=== PATIENT | male | born 1955 | race Caucasian/White ===

== ENCOUNTER 2024-11-28 09:18 | Outpatient (CLI) | payer OTHER, SELFPAY ==
--- NOTE | 2024-11-28 09:24 | USR_ITS ---
PROCEDURE INFORMATION: Exam: US Bilateral Noninvasive Physiologic Study of the Lower Extremity Arteries, Limited Exam date and time: 11/28/2024 9:21 AM Age: 69 years old Clinical indication: Pain; Leg, lower; Bilateral; Additional info: Claudication bilateral TECHNIQUE: Imaging protocol: Bilateral Limited bilateral noninvasive physiologic studies of lower extremity arteries. COMPARISON: No relevant prior studies available. FINDINGS: Right Ankle-Brachial Index: 1.08, brachial-digital index 0.71 Left Ankle-Brachial Index: 1.19, brachial-digital index 0.66 US/CV ankle brachial index 16911 IMPRESSION: Unremarkable study
== END 2024-11-28 09:19 | disposition home or self-care (01) ==
LOC: RAD 09:19
PROVIDERS: PCP Family Medicine; Visit Provider Family Medicine
DX: I73.9 Peripheral vascular disease, unspecified (principal)
CPT/HCPCS: 93922